=== PATIENT | male | born 1960 | race Caucasian/White ===

== ENCOUNTER 2020-07-18 08:13 | Emergency (ER) | payer OTHER ==
[2020-07-18] MEDS ORDERED: FAMOTIDINE 20 MG/50 ML IVPB 20 MG in PREMIX 50 IVPB ONE (08:31)
[2020-07-18] MEDS ORDERED: MAG HYDROX/AL HYDROX/SIMETH -MYLANTA- ORAL SUSPENSION PO ONE (08:31)
[2020-07-18 08:38] VITALS: BP 158/87; PULSE 84; TEMP 98.5; BMI 30.4
[2020-07-18] MEDS ORDERED: MAG HYDROX/AL HYDROX/SIMETH 30 ML UNIT-DOSE CUP ONE (09:07)
[2020-07-18] MEDS ORDERED: FAMOTIDINE 20 MG/50 ML IVPB 20 MG/50 ML MG IVPB ONE (09:08)
[2020-07-18 09:22] LABS: BASO % 3.9 % (0-2.0); EOS % 2.1 % (0-4.5); HEMATOCRIT 49.7 % (35.4-49); HEMOGLOBIN 16.5 GM/dl (11.7-16.9); LYMPH % 30.2 % (8-40); MCH 32.5 pg (25.7-33.7); MCHC 33.2 g/dl (32.0-35.9); MEAN CELL VOLUME 97.8 fl (80-96); MEAN PLT VOLUME 8.4 fl (7.5-11.1); MONO % 8.8 % (3.8-10.2); PLATELET COUNT 230 K/MM3 (134-434); RBC 5.08 M/mm3 (4.00-5.60); RDW 12.5 % (11.9-15.9); WHITE BLOOD COUNT 4.9 K/mm3 (4.0-10.8)
[2020-07-18 09:28] LABS: ALBUMIN 4.5 g/dl (3.4-5.0); BILIRUBIN,TOTAL 1.1 mg/dl (0.2-1); CALCIUM 9.3 mg/dl (8.5-10); POTASSIUM 4.2 mmol/L (3.5-5.1); TOT PROT 7.4 g/dl (6.4-8.2)
== END 2020-07-18 11:52 | disposition home or self-care (01) ==
LOC: FER 08:13
PROC: 3E033GC Introduction of Other Therapeutic Substance into Peripheral Vein, Percutaneous Approach (ICD-10-PCS; principal; 2020-07-18)
DX: R07.9 Chest pain, unspecified (principal)
CPT/HCPCS: 36415; 71046-TC-FY; 80053; 82550; 83690; 84484; 85025; 93005; 99284-25

== ENCOUNTER 2022-09-12 12:15 | Emergency (ER) | payer OTHER ==
[2022-09-12 12:42] VITALS: BP 137/87; PULSE 68; RESP 20; TEMP 98.2; BMI 29.4
[2022-09-12] MEDS ORDERED: MECLIZINE HCL 25 MG TABLET (FP) PO ONE (14:34)
[2022-09-12] MEDS ORDERED: MECLIZINE HCL 25 MG TABLET (FP) ONE (14:38)
== END 2022-09-12 15:54 | disposition home or self-care (01) ==
LOC: FER 12:15
DX: R42 Dizziness and giddiness (principal)
CPT/HCPCS: 70450-TC; 99284-25

== ENCOUNTER 2024-02-11 09:49 | Emergency (ER) | payer OTHER ==
[2024-02-11] MEDS ORDERED: NAPROXEN 500 MG TABLET ONE (10:33)
[2024-02-11] MEDS: NAPROXEN 500 MG TABLET PO ONE (10:34)
[2024-02-11 10:39] VITALS: BP 130/117; PULSE 68; RESP 18; TEMP 98.4; BMI 31.8
== END 2024-02-11 10:59 | disposition home or self-care (01) ==
LOC: FER 09:49
DX: M10.9 Gout, unspecified (principal); M79.89 Other specified soft tissue disorders; M79.675 Pain in left toe(s)
CPT/HCPCS: 99283-25

== ENCOUNTER 2024-02-16 14:43 | Emergency (ER) | payer SELFPAY ==
[2024-02-16 14:48] VITALS: RESP 18; TEMP 98.5; BMI 31.7
[2024-02-16] MEDS: KETOROLAC TROMETHAMINE 15 MG/ML VIAL IM ONE (16:57)
[2024-02-16] MEDS ORDERED: COLCHICINE 0.6 MG TAB ONE ×2 (17:09→18:04)
[2024-02-16] MEDS: COLCHICINE 0.6 MG CAP PO ONE ×2 (17:13→18:19)
[2024-02-16 17:17] LABS: BASO % 0.6 % (0-2.0); EOS % 3.1 % (0-4.5); HEMATOCRIT 48.5 % (35.4-49); HEMOGLOBIN 16.7 GM/dL (11.7-16.9); LYMPH % 33.2 % (8-40); MCH 32.8 pg (25.7-33.7); MCHC 34.5 g/dl (32.0-35.9); MEAN PLT VOLUME 7.6 fl (7.5-11.1); MONO % 9.9 % (3.8-10.2); NEUT % 53.2 % (42.8-82.8); PLATELET COUNT 311 10^3/uL (134-434); RDW 13.4 % (11.9-15.9); WHITE BLOOD COUNT 6.7 K/mm3 (4.0-10.0)
[2024-02-16] MEDS: INDOMETHACIN 50 MG CAPSULE PO ONE (17:30)
[2024-02-16 17:40] LABS: POTASSIUM 4.8 mmol/L (3.5-5.1)
[2024-02-16 17:42] LABS: ALBUMIN 4.2 g/dl (3.4-5.0); BLOOD UREA NITROGEN 14.6 mg/dL (7-18); CALCIUM 9.7 mg/dL (8.5-10.1)
[2024-02-16 17:45] LABS: CREATININE 1.3 mg/dL (0.55-1.3); URIC ACID 5.6 mg/dL (2.6-7.2)
[2024-02-16 17:47] LABS: BILIRUBIN,TOTAL 0.9 mg/dL (0.2-1)
[2024-02-16] MEDS ORDERED: predniSONE 10 MG TABLET (UD) ONE (18:14)
[2024-02-16] MEDS ORDERED: predniSONE 20 MG TABLET (UD) ONE (18:14)
[2024-02-16] MEDS: predniSONE 20 MG TABLET (UD) PO ONE (18:19)
[2024-02-16 18:37] VITALS: BP 127/74; PULSE 79
== END 2024-02-16 18:37 | disposition home or self-care (01) ==
LOC: JER 14:43
DX: M11.09 Hydroxyapatite deposition disease, multiple sites (principal); B35.3 Tinea pedis; L03.116 Cellulitis of left lower limb
CPT/HCPCS: 36415; 73610-TC-LT-FY; 73630-TC-LT; 80053; 84550; 85025; 99284-25